=== PATIENT | male | born 1990 | race Caucasian/White ===

== ENCOUNTER → 2021-01-27 08:52 | Outpatient (CLI) | payer OTHER, SELFPAY ==
--- NOTE | ~2021-01-27 | US_ITS ---
EXAMINATION: US scrotum doppler DATE: 01/27/2021 09:35 INDICATION: Left-sided varicocele. TECHNIQUE: Grayscale and Doppler ultrasound images of the testes were obtained. COMPARISON: None. FINDINGS: The right testis measures 4.5 x 2.8 x 3.6 cm. The left testis measures 4.6 x 2.3 x 3.3 cm. There is normal vascular flow to both testes. The right epididymis demonstrates a 3 mm cyst. The left epididymis is normal with normal vascular flow. There is no hydrocele. There is a left-sided varicoc genet. IMPRESSION: 1. Left-sided varicocele. Reviewed, dictated and finalized at location A. IMPRESSION: 1. Left-sided varicocele.
== END ==
PROVIDERS: Visit Provider Urology
DX: I86.1 Scrotal varices (principal)
CPT/HCPCS: 76870; 93976

== ENCOUNTER 2023-06-13 01:28 | Day surgery (SDC) | payer OTHER, SELFPAY ==
[2023-06-05 13:08] VITALS: BMI 25.2
--- NOTE | 2023-06-05 13:29 | PC.NURSE ---
Report to the Outpatient Waiting Room, entrance under the green pavilion located off [facility], at time 1100 on date _06/13/23 . Planned Procedure Time: _1200 . Time changes happen often and if your time is changed the preop area will call you the afternoon before. - You and your visitor will be asked to self-screen and do not enter if you have any COVID symptoms. - A mask is optional within the hospital at this time. Patients may have LIGHT BREAKFAST. Take the following medications with a SIP of water the morning of surgery: __N/A DO NOT STOP ANY OF YOUR OTHER PRESCRIPTION MEDICATIONS PRIOR TO SURGERY ?EXCEPT THE FOLLOWING Medications to discontinue per physician N/A Date to take last dose N/A Please no make-up, nail greenlandic, hairspray, perfume, deodorant, or body powder the day of surgery. No jewelry (including any body piercings) or valuables the day of surgery, leave them at home. Please take a shower or bath the night before, or the morning of, surgery with an antibacterial soap. Wear comfortable, loose fitting clothing. JEWELRY/PIERCINGS that are not removed may be cut off. - The hospital will not accept responsibility for valuables. - Please leave all valuables, including medications, at home the day of surgery. If you are going home after surgery, a licensed tour bus driver/guide must drive you home. - NO public transportation without another adult if you receive anesthesia. - We recommend that an adult stay with you for 24 hours following discharge. - We also recommend that you do not drive, make important decision, drink alcoholic beverages, or take any drugs that were not prescribed by your health care provider for at least 24 hours after your discharge time. Follow any additional instructions given to you from your surgeon. If you or anyone in your household have experienced Covid symptoms in the past week, please notify your surgeon or the nurse liaison at the phone number below for possible testing. Telephone instructions given to ____QUINN and asked if any additional questions and then verbalized understanding. Patient advised to call surgeon office or pre surgery nurse liaison [phone] if any additional questions.
[2023-06-13] VITALS (12 sets, daily range): BP systolic 146–178; BP diastolic 85–110; PULSE 61–80; RESP 12–20; TEMP 36.7; O2SAT 98–100; BMI 25.7
[2023-06-13] MEDS: ACETAMINOPHEN 500 MG TABLET 1000 MG PO (11:11)
--- NOTE | 2023-06-13 12:24 | WPDHPUPDATE1 ---
History and Physical Update Update Date/Time: 06/13/23 12:24 History and Physical has been reviewed, including an updated exam of the patient. There are NO changes in the patient's condition. Risks, benefits, and alternatives have been discussed and questions answered. Patient agrees to proceed with procedure.
--- NOTE | 2023-06-13 12:24 | PM.IMHP ---
H&P: HPI History of Present Illness Date/Time: 06/13/23 12:24 Chief Complaint: desire for sterility condylomas PMFSH Past Medical History Medical History (Updated 06/13/23 @ 12:26 by Chivo Arevalo MD) Admission for vasectomy Condyloma Social History Social History Smoking packs per day: 0.5 Smoking cigarettes per day: 10.0 Years smoked: 18 Smoking pack-years: 9.00 Smoking status: Current every day smoker Tobacco type: cigarettes Alcohol intake: never Substance use type: does not use Living arrangements: with family Spiritual care concerns: No Meds Home Medications and Allergies Home Medications Medication Instructions Recorded Confirmed Type No Home Medications 06/05/23 06/05/23 History Allergies Allergy/AdvReac Type Severity Reaction Status Date / Time Penicillins Allergy Unknown Swelling Verified 06/13/23 11:08 of Lip/Tongue/Throat Sulfa (Sulfonamide Allergy Unknown Swelling Verified 06/13/23 11:08 Antibiotics) of Lip/Tongue/Throat Exam Narrative: awake and alert normal phallus with Four condyloma 2-4 mm bilateral palpable vas Assessment and Plan Assessment and plan (1) Condyloma: Code(s): A63.0 - Anogenital (venereal) warts Status: Acute (2) Admission for vasectomy: Code(s): Z30.2 - Encounter for sterilization Status: Acute Plan Risks, benefits and alternatives discussed. Pt agrees to proceed with bilateral vasectomy, CO2 laser of condyloma
--- NOTE | 2023-06-13 13:34 | W.PM.PROC2 ---
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 Patient taken the operating. Patient was shaved then prepped and draped in normal sterile fashion. We used 1% lidocaine without epinephrine to anesthetize all the areas of penile and scrotal condyloma. We then excise the 2 largest areas and sent as specimen. We then used the CO2 laser on a power ranging from 2 to 3 in order to destroy all remaining condyloma. We then carefully inspected and repeated the laser procedure to each area of condyloma to reduce the risk of recurrence. There was good hemostasis. We then focused on performing a non scalpel vasectomy. Lidocaine was instilled through the vas deferens midline. We then spread the skin in the midline over the right vas deferens the vas was from the surrounding structures. We then excised a 2cm portion of the vas that was sent as specimen. Each end was then cauterized and tied with a 3-0 chromic suture. A fascial interposition was performed with 3-0 chromic suture. We performed a identical procedure on the contralateral side. There was good hemostasis. As there was minimal skin separation the non scalpel opening was left open. Antibiotic ointment was placed over all condyloma lasering sites and over the vasectomy opening. And this was placed. Patient was then awakened taken recovery room stable condition. Pathology Yes Complications No immediate complications Condition Stable Disposition PACU
--- NOTE | 2023-06-13 14:13 | SUR.PHASEII ---
[address]x about patient being hypertensive upon coming to phase 2, patient was hypertensive throughout case and dr cox is aware of this and is okay for patient to be discharged
== END 2023-06-13 14:05 | disposition home or self-care (01) ==
PROVIDERS: PCP Registered Nurse; Visit Provider Urology
PROC: (CPT 55250; principal; 2023-06-13 12:00)
PROC: (CPT 55250; 2023-06-13 12:00)
DX: Z30.2 Encounter for sterilization (principal); A63.0 Anogenital (venereal) warts; F17.210 Nicotine dependence, cigarettes, uncomplicated
CPT/HCPCS: 55250; 54057; 54060; 88300; 88305; A9270